=== PATIENT | female | born 1955 | race Caucasian/White ===

== ENCOUNTER → 2017-03-01 | Outpatient (CLI) | payer BC ==
[2017-03-01 12:10] LABS: ALBUMIN 3.6 GM/DL (3.2-5.2); ALBUMIN/GLOBULIN RATIO 1.33 (1.00-1.93); ALKALINE PHOSPHATASE 90 U/L (45-117); ALT/SGPT 21 U/L (12-78); ANION GAP 5 MEQ/L (8-16); AST/SGOT 13 U/L (15-37); BILIRUBIN,TOTAL 0.4 MG/DL (0.2-1.0); BLOOD UREA NITROGEN 23 MG/DL (7-18); CALCIUM LEVEL 8.4 MG/DL (8.5-10.1); CARBON DIOXIDE LEVEL 30 MEQ/L (21-32); CHLORIDE LEVEL 105 MEQ/L (98-107); GLOMERULAR FILTRATION RATE > 60.0 (>51); GLUCOSE, FASTING 86 MG/DL (70-105); SODIUM LEVEL 140 MEQ/L (136-145); TOTAL PROTEIN 6.3 GM/DL (6.4-8.2)
== END ==
LOC: M LAB 11:02
PROVIDERS: ATTEND Nurse Practitioner
DX: Z13.29 Encounter for screening for other suspected endocrine disorder (principal); R53.81 Other malaise; M79.1 Myalgia; L29.9 Pruritus, unspecified; K30 Functional dyspepsia; F41.9 Anxiety disorder, unspecified; Z86.2 Personal history of diseases of the blood and blood-forming organs and certain disorders involving the immune mechanism; E55.9 Vitamin D deficiency, unspecified; E27.40 Unspecified adrenocortical insufficiency; N39.0 Urinary tract infection, site not specified

== ENCOUNTER → 2017-06-13 | Outpatient (CLI) | payer BC ==
[2017-06-13 08:29] LABS: BASO % 0.6 % (0.0-1.0); EOS % 0.9 % (0.0-3.0); LARGE UNSTAINED CELL # 0.1 K/mm3 (0.0-0.4); LARGE UNSTAINED CELL % 2.4 % (0.0-4.0); LYMPH # 1.6 K/mm3 (1.5-4.5); LYMPH % 33.4 % (24.0-44.0); MEAN CORPUSCULAR HEMOGLOBIN 29.7 pg (27.0-33.0); MEAN CORPUSCULAR HGB CONC 33.4 g/dl (32.0-36.5); MEAN CORPUSCULAR VOLUME 88.8 fl (80.0-96.0); MONO # 0.2 K/mm3 (0.0-0.8); MONO % 4.7 % (0.0-5.0); NEUTROPHILS # 2.6 K/mm3 (1.8-7.7); PLATELET COUNT, AUTOMATED 246 k/mm3 (150-450); RED CELL DISTRIBUTION WIDTH 12.9 % (11.5-14.5); WHITE BLOOD COUNT 4.4 K/mm3 (4.0-10.0)
[2017-06-13 08:50] LABS: ALBUMIN 3.7 GM/DL (3.2-5.2); ALBUMIN/GLOBULIN RATIO 1.32 (1.00-1.93); ALKALINE PHOSPHATASE 86 U/L (45-117); ALT/SGPT 17 U/L (12-78); ANION GAP 8 MEQ/L (8-16); AST/SGOT 9 U/L (15-37); BILIRUBIN,DIRECT 0.2 MG/DL (0.0-0.2); BILIRUBIN,TOTAL 0.6 MG/DL (0.2-1.0); BLOOD UREA NITROGEN 16 MG/DL (7-18); CALCIUM LEVEL 9.2 MG/DL (8.8-10.2); CARBON DIOXIDE LEVEL 32 MEQ/L (21-32); CHLORIDE LEVEL 104 MEQ/L (98-107); CREATININE FOR GFR 0.55 MG/DL (0.55-1.02); GLOMERULAR FILTRATION RATE > 60.0 (>45); GLUCOSE, FASTING 88 MG/DL (80-110); POTASSIUM SERUM 4.2 MEQ/L (3.5-5.1); SODIUM LEVEL 144 MEQ/L (136-145); TOTAL PROTEIN 6.5 GM/DL (6.4-8.2)
[2017-06-13 09:16] LABS: CORTISOL AM 15.7 UG/DL (4.3-22.4)
[2017-06-13 09:18] LABS: PROGESTERONE < 0.2 NG/ML
[2017-06-13 09:31] LABS: INR 0.91
[2017-06-13 10:04] LABS: ESTRADIOL < 19.0 PG/ML
[2017-06-18 14:14] LABS: IODINE LEVEL 47.2 ug/L (40.0-92.0)
== END ==
LOC: M LAB 07:22
PROVIDERS: ATTEND Nurse Practitioner
DX: R53.81 Other malaise (principal)

== ENCOUNTER → 2017-06-17 | Outpatient (CLI) | payer BC | LOC: M LAB 07:10 | PROVIDERS: ATTEND Nurse Practitioner | DX: Z13.29 Encounter for screening for other suspected endocrine disorder (principal); R53.81 Other malaise; M79.1 Myalgia; L29.9 Pruritus, unspecified; K30 Functional dyspepsia; F41.9 Anxiety disorder, unspecified; Z86.2 Personal history of diseases of the blood and blood-forming organs and certain disorders involving the immune mechanism; E55.9 Vitamin D deficiency, unspecified; E27.40 Unspecified adrenocortical insufficiency; R82.99 Other abnormal findings in urine ==

== ENCOUNTER → 2018-01-30 | Outpatient (CLI) | payer BC ==
[2018-01-30 09:00] LABS: BASO % 0.2 % (0.0-1.0); EOS # 0.1 10^3/uL (0.0-0.50); EOS % 1.2 % (0.0-3.0); HEMATOCRIT 43.9 % (36.0-47.0); HEMOGLOBIN 14.6 g/dl (12.0-16.0); IMMATURE GRANULOCYTE % 0.4 % (0-3.0); LYMPH # 1.5 10^3/uL (1.5-4.5); LYMPH % 31.4 % (24.0-44.0); MEAN CORPUSCULAR HEMOGLOBIN 29.3 pg (27.0-33.0); MEAN CORPUSCULAR HGB CONC 33.3 g/dl (32.0-36.5); MONO # 0.3 10^3/uL (0.0-0.8); NEUTROPHILS # 2.9 10^3/uL (1.8-7.7); NEUTROPHILS % 59.8 % (36.0-66.0); PLATELET COUNT, AUTOMATED 258 10^3/uL (150-450); RED BLOOD COUNT 4.99 10^6/uL (4.00-5.40); RED CELL DISTRIBUTION WIDTH 12.9 % (11.5-14.5); WHITE BLOOD COUNT 4.8 10^3/uL (4.0-10.0)
[2018-01-30 09:04] LABS: APPEARANCE, URINE CLEAR (CLEAR); BACTERIA, URINE AUTO NEGATIVE (NEGATIVE); BILIRUBIN, URINE AUTO NEGATIVE (NEGATIVE); BLOOD, URINE BLOOD NEGATIVE (NEGATIVE); COLOR, URINE STRAW (YELLOW); GLUCOSE, URINE (UA) AUTO NEGATIVE (NEGATIVE); KETONE, URINE AUTO NEGATIVE (NEGATIVE); LEUKOCYTE ESTERASE, URINE AUTO NEGATIVE (NEGATIVE); NITRITE, URINE AUTO NEGATIVE (NEGATIVE); PROTEIN, URINE AUTO NEGATIVE (NEGATIVE); RBC, URINE AUTO 2 /HPF (0-3); SPECIFIC GRAVITY URINE AUTO 1.004 (1.002-1.035); SQUAMOUS EPITHELIAL CELL UR AU 0 /HPF (0-6); UROBILINOGEN, URINE AUTO 0.2 mg/dL (0.0-2.0); WBC, URINE AUTO 1 /HPF (0-3)
[2018-01-30 09:28] LABS: ERYTHROCYTE SEDIMENTATION RATE 9 mm/hr (0-30)
[2018-01-30 09:30] LABS: FIBRINOGEN 361 MG/DL (221-452); INR 0.91; PROTHROMBIN TIME 12.4 SECONDS (12.4-14.5)
[2018-01-30 09:37] LABS: ALBUMIN 4.1 GM/DL (3.2-5.2); ALBUMIN/GLOBULIN RATIO 1.28 (1.00-1.93); ALKALINE PHOSPHATASE 102 U/L (45-117); ALT/SGPT 16 U/L (12-78); ANION GAP 7 MEQ/L (8-16); AST/SGOT 12 U/L (7-37); BILIRUBIN,TOTAL 0.5 MG/DL (0.2-1.0); BLOOD UREA NITROGEN 16 MG/DL (7-18); C REACTIVE PROTEIN QUANTITATIV < 0.30 MG/DL (0.00-0.30); CALCIUM LEVEL 8.8 MG/DL (8.8-10.2); CARBON DIOXIDE LEVEL 32 MEQ/L (21-32); CHLORIDE LEVEL 105 MEQ/L (98-107); CHOLESTEROL LEVEL 153 MG/DL (<200); CHOLESTEROL RISK RATIO 2.318 (<5); CREATININE FOR GFR 0.53 MG/DL (0.55-1.30); GLOMERULAR FILTRATION RATE > 60.0 (>45); GLUCOSE, FASTING 78 MG/DL (70-100); HDL CHOLESTEROL 66 MG/DL (>40); LDL CHOLESTEROL 77.2 MG/DL (<100); MAGNESIUM LEVEL 2.3 MG/DL (1.8-2.4); NON-HDL-C 87 MG/DL; POTASSIUM SERUM 4.1 MEQ/L (3.5-5.1); SODIUM LEVEL 144 MEQ/L (136-145); T UPTAKE 34 % (30-39); THYROXINE (T4) 11.2 UG/DL (4.5-12.0); TOTAL PROTEIN 7.3 GM/DL (6.4-8.2); TRIGLYCERIDES LEVEL 49 MG/DL (<150)
[2018-01-30 11:28] LABS: TOTAL 25(OH) VITAMIN D 37.7 NG/ML (30.0-100.0)
[2018-01-30 11:32] LABS: CORTISOL AM 16.1 UG/DL (4.3-22.4)
[2018-02-03 14:16] LABS: ADRENOCORTICOTROPHIC HORMONE 13.8 pg/mL (7.2-63.3)
[2018-02-03 14:16] LABS: DEHYDROEPIANDROSTERONE SULFATE 26.1 ug/dL (29.4-220.5); DEHYDROEPIANDROSTERONE UNCONJ 100 ng/dL (31-701); GLUTATHIONE QT 204 ug/mL (176-323); HOMOCYST(E)INE SERUM 6.5 umol/L (0.0-15.0)
== END ==
LOC: M LAB 07:41
DX: Z13.29 Encounter for screening for other suspected endocrine disorder (principal); R53.81 Other malaise; M79.1 Myalgia; L29.9 Pruritus, unspecified; K30 Functional dyspepsia; F41.9 Anxiety disorder, unspecified; Z86.2 Personal history of diseases of the blood and blood-forming organs and certain disorders involving the immune mechanism; E55.9 Vitamin D deficiency, unspecified; E27.40 Unspecified adrenocortical insufficiency; N39.0 Urinary tract infection, site not specified; R82.99 Other abnormal findings in urine
CPT/HCPCS: 83735

== ENCOUNTER → 2018-02-06 | Outpatient (CLI) | payer BC | LOC: M RAD 12:02 | DX: R53.81 Other malaise (principal); M79.1 Myalgia; L29.9 Pruritus, unspecified; K30 Functional dyspepsia; F41.9 Anxiety disorder, unspecified; Z86.2 Personal history of diseases of the blood and blood-forming organs and certain disorders involving the immune mechanism; E55.9 Vitamin D deficiency, unspecified; E27.40 Unspecified adrenocortical insufficiency; M25.531 Pain in right wrist | CPT/HCPCS: 73110 ==

== ENCOUNTER → 2019-04-22 | Outpatient (CLI) | payer BC ==
[2019-04-22 08:32] LABS: BASO % 0.5 % (0.0-1.0); EOS # 0.1 10^3/uL (0.0-0.50); EOS % 0.8 % (0.0-3.0); HEMATOCRIT 41.6 % (36.0-47.0); HEMOGLOBIN 13.7 g/dl (12.0-15.5); LYMPH # 1.6 10^3/uL (1.5-4.5); LYMPH % 27.5 % (24.0-44.0); MEAN CORPUSCULAR HGB CONC 32.9 g/dl (32.0-36.5); MONO # 0.4 10^3/uL (0.0-0.8); MONO % 6.9 % (0.0-5.0); NEUTROPHILS # 3.8 10^3/uL (1.8-7.7); PLATELET COUNT, AUTOMATED 264 10^3/uL (150-450); RED BLOOD COUNT 4.57 10^6/uL (4.00-5.40)
[2019-04-22 08:32] LABS: AMORPHOUS SEDIMENT MODERATE (NEGATIVE); APPEARANCE, URINE CLOUDY (CLEAR); BACTERIA, URINE AUTO NEGATIVE (NEGATIVE); BILIRUBIN, URINE AUTO NEGATIVE (NEGATIVE); BLOOD, URINE BLOOD NEGATIVE (NEGATIVE); COLOR, URINE YELLOW (YELLOW); GLUCOSE, URINE (UA) AUTO NEGATIVE (NEGATIVE); KETONE, URINE AUTO NEGATIVE (NEGATIVE); LEUKOCYTE ESTERASE, URINE AUTO NEGATIVE (NEGATIVE); MUCUS, URINE SMALL (NEGATIVE); NITRITE, URINE AUTO NEGATIVE (NEGATIVE); PROTEIN, URINE AUTO NEGATIVE (NEGATIVE); RBC, URINE AUTO 3 /HPF (0-3); SQUAMOUS EPITHELIAL CELL UR AU 1 /HPF (0-6); UROBILINOGEN, URINE AUTO 0.2 mg/dL (0.0-2.0); WBC, URINE AUTO 0 /HPF (0-3)
[2019-04-22 09:11] LABS: ERYTHROCYTE SEDIMENTATION RATE 8 mm/hr (0-30)
[2019-04-22 09:12] LABS: ALT/SGPT 23 U/L (12-78); BILIRUBIN,TOTAL 0.5 MG/DL (0.2-1.0); BLOOD UREA NITROGEN 19 MG/DL (7-18); CALCIUM LEVEL 9.3 MG/DL (8.8-10.2); CARBON DIOXIDE LEVEL 32 MEQ/L (21-32); CHLORIDE LEVEL 106 MEQ/L (98-107); CHOLESTEROL LEVEL 163 MG/DL (<200); CHOLESTEROL RISK RATIO 2.089 (<5); CREATININE FOR GFR 0.56 MG/DL (0.55-1.30); FREE THYROXINE INDEX 3.3 % (1.3-4.8); GLOMERULAR FILTRATION RATE > 60.0 (>45); GLUCOSE, FASTING 84 MG/DL (70-100); HDL CHOLESTEROL 78 MG/DL (>40); LDL CHOLESTEROL 76 MG/DL (<100); NON-HDL-C 85 MG/DL; POTASSIUM SERUM 3.9 MEQ/L (3.5-5.1); SODIUM LEVEL 143 MEQ/L (136-145); T UPTAKE 34 % (30-39); THYROXINE (T4) 9.7 UG/DL (4.5-12.0); TOTAL PROTEIN 6.9 GM/DL (6.4-8.2); TRIGLYCERIDES LEVEL 45 MG/DL (<150)
[2019-04-22 09:28] LABS: TOTAL 25(OH) VITAMIN D 38.7 NG/ML (30.0-100.0)
[2019-04-22 10:29] LABS: ANTI-STREPTOLYSIN O QUANT 19.4 IU/ML (<214.0)
[2019-04-24 00:06] LABS: EBV VIRAL CAPSID AG IgM <36.0 U/mL (0.0-35.9)
[2019-04-24 00:07] LABS: EBV VIRAL CAPSID AG IgM <36.0 U/mL (0.0-35.9); HERPES HUMAN VIRUS #6 IgG HVG 4.99 index (.); HOMOCYST(E)INE SERUM 7.6 umol/L (0.0-15.0); Lyme Disease IgG/IgM Antibodie <0.91 ISR (0.00-0.90); Lyme Disease IgM Ab Quantitati <0.80 index (0.00-0.79); MYCOPLASMA PNEUMONIAE IgG 468 U/mL (0-99); MYCOPLASMA PNEUMONIAE IgM <770 U/mL (0-769)
== END ==
LOC: M LAB 07:40
PROVIDERS: ATTEND Nurse Practitioner
DX: R53.81 Other malaise (principal); L29.9 Pruritus, unspecified; K30 Functional dyspepsia; F41.9 Anxiety disorder, unspecified; Z13.29 Encounter for screening for other suspected endocrine disorder; Z86.2 Personal history of diseases of the blood and blood-forming organs and certain disorders involving the immune mechanism; E55.9 Vitamin D deficiency, unspecified; E27.40 Unspecified adrenocortical insufficiency; N39.0 Urinary tract infection, site not specified; S63.501D Unspecified sprain of right wrist, subsequent encounter; R22.31 Localized swelling, mass and lump, right upper limb; X58.XXXD Exposure to other specified factors, subsequent encounter

== ENCOUNTER → 2019-04-27 | Outpatient (CLI) | payer BC ==
--- NOTE | 2019-04-27 12:01 | REP ---
ULTRASOUND RIGHT DISTAL FOREARM SOFT TISSUES: Real-time sonographic evaluation of the right distal forearm soft tissues performed at the site of a palpable lump anteriorly. Underlying venous structures are compressible with no intraluminal thrombus. No cystic or solid mass is seen. No fluid collection is seen. IMPRESSION: Negative ultrasound of soft tissues distal right forearm at the site of the palpable lump anteriorly. Electronically Signed by González Carter MD 04/27/2019 07:34 P
== END ==
LOC: M RAD 10:30
PROVIDERS: ATTEND Nurse Practitioner
DX: R22.31 Localized swelling, mass and lump, right upper limb (principal)